=== PATIENT | female | born 1990 | race Caucasian/White ===

== ENCOUNTER 2022-08-16 14:10 | Emergency (ER) | payer OTHER ==
[2022-08-16 14:55] VITALS: BP 125/78; PULSE 72; RESP 18; TEMP 97.9; BMI 24.5
[2022-08-16 16:37] LABS: BASO % 0.6 % (0-2.0); EOS % 0.6 % (0-4.5); HEMATOCRIT 42.1 % (32.4-45.2); LYMPH % 31.9 % (8-40); MCH 28.6 pg (25.7-33.7); MCHC 33.2 g/dl (32.0-36.0); MEAN CELL VOLUME 86.1 fl (80-96); MEAN PLT VOLUME 10.2 fl (7.5-11.1); MONO % 8.2 % (3.8-10.2); NEUT % 58.7 % (42.8-82.8); PLATELET COUNT 209 10^3/uL (134-434); RBC 4.89 M/mm3 (3.60-5.2); RDW 13.1 % (11.6-15.6); WHITE BLOOD COUNT 4.6 K/mm3 (4.0-10.0)
[2022-08-16 17:04] LABS: CALCIUM 9.2 mg/dL (8.5-10.1)
[2022-08-16 17:05] LABS: ALBUMIN 3.8 g/dl (3.4-5.0); BLOOD UREA NITROGEN 12.5 mg/dL (7-18)
[2022-08-16 17:08] LABS: CREATININE 0.7 mg/dL (0.55-1.3)
[2022-08-16 17:09] LABS: TOT PROT 7.7 g/dl (6.4-8.2)
[2022-08-16 17:10] LABS: BILIRUBIN,TOTAL 0.4 mg/dL (0.2-1)
== END 2022-08-16 17:29 | disposition home or self-care (01) ==
LOC: JERFT 14:10 → JER 14:10 → JERFT 17:29
DX: R07.89 Other chest pain (principal)
CPT/HCPCS: 36415; 71046-TC-FY; 80053; 84484; 85025; 93005; 93010; 99285-25